=== PATIENT | male | born 1970 | race Caucasian/White ===

== ENCOUNTER 2018-04-25 06:38 | Inpatient (IN) | payer SELFPAY ==
[2018-04-25 07:02] VITALS: BMI 44.6
[2018-04-25] MEDS ORDERED: ONDANSETRON 4 MG/2 ML VIAL IV PRN (07:04)
[2018-04-25] MEDS ORDERED: HYDRALAZINE HCL 20 MG/ML VIAL IV PRN (07:04)
[2018-04-25] MEDS ORDERED: LORazepam 2 MG/ML VIAL IV PRN (07:04)
[2018-04-25 07:57] LABS: Absolute Lymphocytes (CBC) 0.6 K/uL (0.7-4.9); Absolute Monocytes 0.4 K/uL (0.1-1.3); Absolute Neutrophil 11.6 K/uL (1.8-8.0); Basophils % 0.2 % (0-1.3); Hematocrit 42.2 % (39.6-49.0); Lymphocytes % 4.7 % (15.3-44.8); MCH 31.5 pg (27.0-35.0); MCV 91.2 fL (80-100); MPV 7.9 fL (7.6-11.3); Monocytes % 3.2 % (3.3-12.3); RBC Red Blood Cell Count 4.62 M/uL (4.33-5.43)
[2018-04-25 08:01] LABS: Magnesium 2.1 mg/dL (1.8-2.4); Potassium 4.2 mmol/L (3.5-5.1)
[2018-04-25 08:11] LABS: Thyroid Stimulating Hormone 3.01 uIU/mL (0.36-3.74)
[2018-04-25] MEDS: ACETAMINOPHEN 500 MG TAB PO PRN ×2 (08:31→13:56)
[2018-04-25] MEDS: NA CHLORIDE 0.9% 1,000 ML IV SCH ×2 (08:31→17:10)
[2018-04-25] MEDS: NICOTINE 21 MG/PAT TD SCH (08:31)
[2018-04-25] MEDS: ENOXAPARIN 40 MG/0.4 ML SQ SCH (08:32)
[2018-04-25] MEDS: LISINOPRIL 10 MG TAB PO SCH (08:32)
[2018-04-25 09:04] LABS: Urine Appearance CLEAR; Urine Bilirubin NEGATIVE (NEG); Urine Blood 2+ (NEG); Urine Color YELLOW; Urine Glucose NEGATIVE (NEG); Urine Protein NEGATIVE (NEG); Urine Specific Gravity >=1.030 (1.005-1.030); Urine pH 6.5 (5.0-7.0)
[2018-04-25 09:18] LABS: Urine Microscopic Reflex ORDER UMIC
[2018-04-25 09:28] LABS: Urine Bacteria NONE SEEN /HPF (NONE SEEN); Urine Culture Reflex Order NOT NEEDED
--- NOTE | 2018-04-25 09:52 | RAD REPORT ---
EXAM DESCRIPTION: RAD - Chest Pa And Lat (2 Views) - 04/25/2018 9:09 am CLINICAL HISTORY: Leg edema, shortness of breath COMPARISON: None. TECHNIQUE: PA and lateral views of the chest were obtained. FINDINGS: The lungs are clear. No failure or volume overload findings. Heart size is normal and ly tral vasculature is within normal limits. No pleural effusion or pneumothorax seen. No acute bony f inding noted. No aortic abnormality. IMPRESSION: No acute cardiopulmonary process.
--- NOTE | 2018-04-25 09:52 | RAD REPORT ---
EXAM DESCRIPTION: US - EXTREM VENOUS W COMPRESS HALIE - 04/25/2018 9:29 am CLINICAL HISTORY: Cellulitis, leg pain and edema COMPARISON: None. TECHNIQUE: Real-time sonographic evaluation of the bilateral lower extremity common femoral, superfi cial femoral, popliteal and posterior tibial veins was performed. FINDINGS: Normal compressibility, flow augmentation, phasic flow and spontaneous flow are identified in the left and right lower extremity common femoral, superficial femoral, popliteal and posterior t ibeal veins. No intraluminal filling defects seen. Prominent right groin lymph node likely reactive from the cellulitis. IMPRESSION: No DVT in either lower extremity.
[2018-04-25] MEDS: PIPER/TAZO/NS 3.375gm 3.375 GM/100 ML BAG IVPB SCH ×2 (09:54→16:59)
[2018-04-25] MEDS: VANCOMYCIN 2 GM in NA CHLORIDE 0.9% 500 ML IVPB SCH (09:54)
[2018-04-25 10:14] LABS: Blood Morphology Comment NOT SEEN (NOT SEEN); Platelet Estimate ADEQ; Urine White Blood Cell Casts OK
--- NOTE | 2018-04-25 10:14 | P.HP ---
Certification for Inpatient Patient admitted to: Inpatient With expected LOS: >2 Midnights Patient will require the following post-hospital care: None Practitioner: I am a practitioner with admitting privileges, knowledge of patient current condition, hospital course, and medical plan of care. Services: Services provided to patient in accordance with Admission requirements found in Title 42 Section 412.3 of the Code of Federal Regulations Patient History Date of Service: 04/25/18 Primary Care Provider: Unknown Reason for admission: Right lower extremity pain and swelling History of Present Illness: 48-year-old male presented to outpatient [facility] for right lower extremity pain and swelling. Patient reported right lower extremity pain and swelling since Wednesday. [place] Thereafter he reported increasing swelling. He also reported some fever and chills today. Over the past week he has noted some swelling to the feet. Patient reports a history of hypertension, obesity and tobacco use. He drinks alcohol weekly. At the facility patient found to have right lower extremity cellulitis. White count elevated. Patient was directly admitted for further treatment. Lab here in the hospital shows a white count of 12.6, lactic acid within normal range. Pro calcitonin elevated. GFR 59. Glucose 119. Venous Doppler of the lower extremities bilateral shows no DVT. Chest x-ray unremarkable. When I saw the patient he did not appear in any respiratory distress. Edema to the right lower extremity noted. Blood pressure is not well controlled. Allergies No Known Allergies Allergy (Unverified 04/25/18 07:41) Home medications list reviewed: Yes Home Medications: Lisinopril 10 mg PO DAILY 04/25/18 - Past Medical/Surgical History Diabetic: No -: Hypertension -: Obesity -: Tobacco abuse -: Alcohol use Past Surgical History: Patient denies surgical history Psychosocial/ Personal History: Patient is . He works as a teacher and gymnastics coach or instructor. He has 3 children. - Family History Family History: Reviewed- Non-Contributory - Social History Smoking Status: Heavy Tobacco smoker (>10 cigarettes/day) Counseled patient to stop smoking for: less than 10 minutes Smoking therapy provided: Yes Patient receptive to therapy: Yes Alcohol use: Yes CD- Drugs: No Caffeine use: Yes Place of Residence: Home Review of Systems General: Fever, Chills, As per HPI Eyes: Unremarkable ENT: Unremarkable Respiratory: Unremarkable Cardiovascular: Edema, As per HPI Gastrointestinal: Unremarkable Genitourinary: Unremarkable Musculoskeletal: As per HPI Integumentary: As per HPI Neurological: Unremarkable Lymphatics: Unremarkable Physical Examination - Vital Signs Temperature: 98.4 F Blood Pressure: 170/98 Pulse: 112 Respirations: 96 Pulse Ox (%): 96 - Physical Exam General: Alert, In no apparent distress, Oriented x3, Cooperative HEENT: Atraumatic, Normocephalic, PERRLA, Mucous membr. moist/pink Neck: Supple, No Thyromegaly Respiratory: Clear to auscultation bilaterally, Normal air movement Cardiovascular: Normal pulses, Regular rate/rhythm Gastrointestinal: Normal bowel sounds, Soft and benign, Non-distended, No tenderness, No masses, No rebound, No guarding Musculoskeletal: Other (Warmth to the right lower extremity with edema noted. Edema to the lower extremity greater on the right than left. Some erythema noted. No open sores noted.) Integumentary: No erythema, No warmth, No cyanosis Neurological: Normal speech, Normal strength at 5/5 x4 extr, Normal tone, Normal affect Lymphatics: Other (Right groin adenopathy noted) - Studies Laboratory Data (last 24 hrs) 04/25/18 07:25: Sodium 137, Potassium 4.2, BUN 15, Creatinine 1.30, Glucose 119 H, Magnesium 2.1 04/25/18 07:25: WBC 12.6 H, Hgb 14.5, Hct 42.2, Plt Count 171 Assessment and Plan - Problems (Diagnosis) (1) Cellulitis Current Visit: Yes Status: Acute Plan: Patient started on IV antibiotic therapy. Blood cultures obtained. Will consult surgery to further assess. Venous Doppler shows no DVT. Chest x-ray unremarkable. I will turn the service over to Dr. Etienne tomorrow. I will go over the plan of care with him. Qualifiers: Site of cellulitis: extremity Site of cellulitis of extremity: lower extremity Laterality: right Qualified Code(s): L03.115 - Cellulitis of right lower limb (2) Hypertension Current Visit: Yes Status: Chronic Plan: Patient with hypertension. Not adequately controlled. Will continue with lisinopril. Will add metoprolol. Will check echocardiogram. Will evaluate for CHF. Qualifiers: Hypertension type: essential hypertension Qualified Code(s): I10 - Essential (primary) hypertension (3) Renal insufficiency Current Visit: Yes Status: Acute Plan: Will continue with IV fluid hydration. (4) Dehydration Current Visit: Yes Status: Acute Plan: Continue with IV fluids. (5) Tobacco use Current Visit: Yes Status: Chronic Plan: Will provide nicotine patch if required. Tobacco cessation recommended. (6) Alcohol use Current Visit: Yes Status: Chronic Plan: Alcohol cessation will be provided. (7) Obesity Current Visit: Yes Status: Chronic Plan: Will address lifestyle modification education Qualifiers: Obesity type: due to excess calories Obesity classification: adult class 3 (BMI >= 40) Serious obesity comorbidity presence: with serious comorbidity Body mass index: BMI 40.0-44.9 Qualified Code(s): E66.01 - Morbid (severe) obesity due to excess calories; Z68.41 - Body mass index (BMI) 40.0-44.9, adult Discharge Plan: Home Plan to discharge in: Greater than 2 days - Advance Directives Does patient have a Living Will: No Does patient have a Durable POA for Healthcare: No - Code Status/Comfort Care Code Status Assessed: Yes Time Spent Managing Pts Care (In Minutes): 55
[2018-04-25] MEDS: TRAMADOL HCL 50 MG TAB PO PRN (15:56)
[2018-04-25] MEDS: ACETAMINOPHEN 500 MG TAB PO ONE ×2 (15:57→16:00)
--- NOTE | 2018-04-25 16:37 | CON ---
Date of Consultation: 04/25/2018 Brief History Of Present Illness: The patient is a 48-year-old male, who presents to the [facility] ER at [place] with right lower extremity pain and swelling. He states that he was in the [place] recently walking through the water and thought that the seaweed was unusually high at that time, bu t did not notice any stinging or envenomations of any kind that he is aware of. He states that over the course of the day on Wednesday/Wednesday, he developed worse swelling to the right lower extremity be low the knee. It became more tender, painful. He slept that first night on Wednesday and had some im provement of his symptoms, but on Wednesday they got significantly worse after he was ambulatory. He st arted having pain in the lower extremity and his symptoms worsened and as such, he developed fever, n o chills and no other constitutional complaints, but the swelling and redness and tenderness got wors e and as such he came to [place] ER where he ultimately was seen, evaluated, and transferred to our [facility] for higher level of care. Past Medical History: Significant for hypertension. Past Surgical History: He has had EGD for a food impaction. Home Medications: Lisinopril 10 mg p.o. daily. Allergies: NO KNOWN DRUG ALLERGIES. Social History: He admits to tobacco use, predominantly chewing tobacco but does smoke on occasion a nd he drinks alcohol intermittently. He works as a teacher and a men's basketball coach. He has 3 children. He reyna es recreational drug use. Review of Systems: A 10-point review of systems other than HPI, denies. Physical Examination: Vital Signs: At the time of my examination, his BMI is 44.6. His vital signs were a blood pressure 170/98, pulse is 112, respiratory rate 12, temperature 98.4. General: He is awake, alert, oriented. Psychiatric: He is appropriate conversive. HEENT: He is normocephalic. His sclerae are anicteric. He has a small xanthoma on his left eyelid. His oropharynx is clear. Neck: Supple. No JVD. Chest: Normal expansion and excursion. Cardiovascular: Regular rate and rhythm. Pulmonary: Clear to auscultation bilaterally. Abdomen: Soft, nontender, nondistended. Obese generally. Extremities: Focused examination of the right lower extremity shows some cellulitic and swelling benji nges below the knee on the right lower extremity. It does not involve the joint at the ankle. It is isolated to above the ankle and below the knee by approximately 4 to 5 cm on each aspect of that. It is near circumferential. It is minimally tender to palpation and the swelling is 1+ pitting edema. There was no obvious bleeding. There was some minor small skin breaks and evidence of old scars hea led on the lower extremity. Otherwise, the remainder of examination is essentially normal. Laboratory Data: Reveals a white blood cell count of 12.6, hemoglobin is 14.5, hematocrit of 42.2, p latelet count is 171. Neutrophils were 91%. His sodium 137, potassium 4.2, chloride 104, carbon tiarra xide 26, BUN 15, creatinine 1.3, glucose is 119, lactic acid 1.0. His procalcitonin is 1.01. His UA showed 2+ blood and 10 to 20 red blood cells, otherwise essentially negative. He had imaging perfor med here which included an extremity venous study, which was officially read as no DVT in either lowe r extremity and he had a chest x-ray performed which is officially was read as no acute cardiopulmona ry process. Assessment And Plan: This is a 48-year-old male who presents with signs and symptoms of cellulitis t o the right lower extremity. 1.Continue medical management. 2.IV fluid hydration. 3.Antibiotic coverage with vancomycin and Zosyn. 4.Local wound care. Scrubbing the lower extremity with chlorhexidine daily and elevation, in additi on Lovenox injections daily. I have explained the risks, benefits, and alternatives of the above-stated plan. The patient agrees to proc eed as indicated. AMARIS/KIERRA Voice ID: [id number] Report ID: [id number]
[2018-04-25] MEDS: METOPROLOL TAR 25 MG TAB PO SCH (17:09)
[2018-04-26] MEDS: IBUPROFEN 400 MG TAB PO PRN ×2 (00:22→14:27)
[2018-04-26] MEDS: PIPER/TAZO/NS 3.375gm 3.375 GM/100 ML BAG IVPB SCH ×3 (00:22→16:27)
[2018-04-26] MEDS: NA CHLORIDE 0.9% 1,000 ML IV SCH ×4 (00:23→22:04)
[2018-04-26] MEDS: VANCOMYCIN 2 GM in NA CHLORIDE 0.9% 500 ML IVPB SCH ×2 (02:46→22:00)
[2018-04-26 05:26] LABS: Absolute Lymphocytes (CBC) 1.2 K/uL (0.7-4.9); Absolute Monocytes 0.7 K/uL (0.1-1.3); Absolute Neutrophil 7.6 K/uL (1.8-8.0); Basophils % 0.5 % (0-1.3); Eosinophils % 0.1 % (0-4.4); Lymphocytes % 12.9 % (15.3-44.8); MCH 31.9 pg (27.0-35.0); MCV 91.4 fL (80-100); MPV 8.1 fL (7.6-11.3); Monocytes % 7.2 % (3.3-12.3); RBC Red Blood Cell Count 4.37 M/uL (4.33-5.43)
[2018-04-26 05:31] LABS: Magnesium 2.1 mg/dL (1.8-2.4); Potassium 4.1 mmol/L (3.5-5.1)
[2018-04-26] MEDS: METOPROLOL TAR 25 MG TAB PO SCH ×2 (06:44→18:41)
[2018-04-26] MEDS: PANTOPRAZOLE 40MG TABLET PO SCH (06:44)
[2018-04-26] MEDS: NICOTINE 21 MG/PAT TD SCH (08:40)
[2018-04-26] MEDS: ENOXAPARIN 40 MG/0.4 ML SQ SCH (08:41)
[2018-04-26] MEDS: LISINOPRIL 10 MG TAB PO SCH (08:41)
--- NOTE | 2018-04-26 12:45 | ECHO ---
HEIGHT: 6 ft 0 in WEIGHT: 328 lb 12.8 oz DATE OF STUDY: 04/26/[address]: Gerardo Robertson DO 2-DIMENSIONAL: YES M.MODE: YES DOPPLER: YES COLOR FLOW: YES TDS: NO PORTABLE: NO DEFINITY: NO BUBBLE STUDY: NO DIAGNOSIS: EDEMA, HYPERTENSION, EVALUATE FOR CONGESTIVE HEART FAILURE CARDIAC HISTORY: CATHERIZATION: NO SURGERY: NO PROSTHETIC VALVE: NO PACEMAKER: NO MEASUREMENTS (cm) DIASTOLIC (NORMALS) SYSTOLIC (NORMALS) IVSd 1.4 (0.6-1.2) LA Diam 3.8 (1.9-4.0) LVEF 56% LVIDd 5.8 (3.5-5.7) LVIDs 4.1 (2.0-3.5) %FS 30% LVPWd 1.5 (0.6-1.2) Ao Diam 3.5 (2.0-3.7) 2 DIMENSIONAL ASSESSMENT: RIGHT ATRIUM: NORMAL LEFT ATRIUM: NORMAL RIGHT VENTRICLE: NORMAL LEFT VENTRICLE: NORMAL TRICUSPID VALVE: NORMAL MITRAL VALVE: NORMAL PULMONIC VALVE: NORMAL AORTIC VALVE: NORMAL PERICARDIAL EFFUSION: NONE AORTIC ROOT: NORMAL LEFT VENTRICULAR WALL MOTION: PARADOXICAL SEPTUM. DOPPLER/COLOR FLOW: MILD TRICUSPID REGURGITATION NORMAL RIGHT VENTRICULAR SYSTOLIC PRESSURE. COMMENTS: PARADOXICAL SEPTAL MOTION. MILD TRICUSPID REGURGITATION. NORMAL LEFT VENTRICULAR EJECTION FRACTION AND SIZE. NO EFFUSION. TECHNOLOGIST: DARLEEN LOCKHART
[2018-04-26] MEDS: HYDROCODONE/APAP 7.5/325 MG TAB PO PRN ×2 (16:27→23:20)
--- NOTE | 2018-04-26 18:10 | P.PN ---
Subjective Date of Service: 04/26/18 Primary Care Provider: Unknown Chief Complaint: Right lower extremity pain and swelling He feels better, however, his lesion seems to be extended out of the marked margins. No fever. Pain is better control. Physical Examination - Vital Signs Temperature: 101.4 F Blood Pressure: 134/82 Pulse: 99 Respirations: 18 Pulse Ox (%): 96 - Physical Exam General: Alert, In no apparent distress HEENT: Atraumatic, PERRLA, EOMI Cardiovascular: Regular rate/rhythm, Normal S1 S2 Gastrointestinal: Normal bowel sounds, No tenderness Musculoskeletal: No tenderness Integumentary: Skin lesion, Erythema (right leg, extended over the marked margins. There are some blisters developing as well.) Neurological: Normal speech, Normal tone, Normal affect Lymphatics: No axilla or inguinal lymphadenopathy - Studies Laboratory Data (last 24 hrs) 04/26/18 04:53: Sodium 136, Potassium 4.1, BUN 15, Creatinine 1.40 H, Glucose 99 , Magnesium 2.1 04/26/18 04:53: WBC 9.6 D, Hgb 13.9, Hct 40.0, Plt Count 150 L Assessment And Plan - Current Problems (Diagnosis) (1) Cellulitis Onset Date: 04/26/18 Current Visit: Yes Status: Acute Plan: Blood cultures are negative so far. Continue empiric treatment with Vancomycin and Zosyn. Lesion has extended today, however, he is afebrile and WBC are within normal limits. Qualifiers: Site of cellulitis: extremity Site of cellulitis of extremity: lower extremity Laterality: right Qualified Code(s): L03.115 - Cellulitis of right lower limb (2) Obesity Onset Date: 04/26/18 Current Visit: Yes Status: Chronic Qualifiers: Obesity type: due to excess calories Obesity classification: adult class 3 (BMI >= 40) Serious obesity comorbidity presence: with serious comorbidity Body mass index: BMI 40.0-44.9 Qualified Code(s): E66.01 - Morbid (severe) obesity due to excess calories; Z68.41 - Body mass index (BMI) 40.0-44.9, adult (3) Tobacco use Onset Date: 04/26/18 Current Visit: Yes Status: Chronic (4) Acute renal injury Current Visit: Yes Status: Acute Plan: Continue IV fluids. May be getting worse secondary to antibiotic, creatinine today slightly more elevated. Continue monitoring. - Code Status/Comfort Care Code Status Assessed: Yes Code Status: Full Code
[2018-04-27] MEDS: PIPER/TAZO/NS 3.375gm 3.375 GM/100 ML BAG IVPB SCH ×3 (01:45→17:25)
[2018-04-27 04:14] LABS: Absolute Lymphocytes (CBC) 1.5 K/uL (0.7-4.9); Absolute Monocytes 0.7 K/uL (0.1-1.3); Absolute Neutrophil 6.7 K/uL (1.8-8.0); Basophils % 0.4 % (0-1.3); Eosinophils % 1.2 % (0-4.4); Hematocrit 40.4 % (39.6-49.0); Lymphocytes % 16.8 % (15.3-44.8); MCH 31.7 pg (27.0-35.0); MCV 91.4 fL (80-100); MPV 8.8 fL (7.6-11.3); Monocytes % 7.6 % (3.3-12.3); RBC Red Blood Cell Count 4.42 M/uL (4.33-5.43)
[2018-04-27 04:34] LABS: Magnesium 2.1 mg/dL (1.8-2.4); Potassium 3.7 mmol/L (3.5-5.1)
[2018-04-27] MEDS: PANTOPRAZOLE 40MG TABLET PO SCH (06:01)
[2018-04-27] MEDS: METOPROLOL TAR 25 MG TAB PO SCH (06:01)
[2018-04-27] MEDS: NICOTINE 21 MG/PAT TD SCH (08:40)
[2018-04-27] MEDS: HYDROCODONE/APAP 7.5/325 MG TAB PO PRN (08:41)
[2018-04-27] MEDS: LISINOPRIL 10 MG TAB PO SCH (08:42)
[2018-04-27] MEDS: NA CHLORIDE 0.9% 1,000 ML IV SCH (10:00)
[2018-04-27] MEDS: ENOXAPARIN 40 MG/0.4 ML SQ SCH (10:22)
[2018-04-27] MEDS: VANCOMYCIN 2 GM in NA CHLORIDE 0.9% 500 ML IVPB SCH (15:13)
--- NOTE | 2018-04-27 15:59 | P.PN ---
Subjective Date of Service: 04/27/18 Primary Care Provider: Unknown Chief Complaint: Right lower extremity pain and swelling Patient seen and examined at bedside with RN. Chart reviewed. Case discussed with surgery. Currently patient is doing well overall no complaints to offer overnight. This morning he has been doing well swelling and erythema has been getting better. Review of Systems 10-point ROS is otherwise unremarkable Physical Examination - Vital Signs Temperature: 97.7 F Blood Pressure: 133/83 Pulse: 98 Respirations: 20 Pulse Ox (%): 95 - Physical Exam General: Alert, In no apparent distress HEENT: Atraumatic, PERRLA, EOMI Neck: Supple, JVD not distended Respiratory: Clear to auscultation bilaterally, Normal air movement Cardiovascular: Regular rate/rhythm, Normal S1 S2 Gastrointestinal: Normal bowel sounds, No tenderness Musculoskeletal: No tenderness Integumentary: Tenderness/swelling, Erythema, Warmth, Other (right leg cellulitis noted. Mild Improvement noted. Swelling still the same) Neurological: Normal speech, Normal tone, Normal affect Lymphatics: No axilla or inguinal lymphadenopathy - Studies Laboratory Data (last 24 hrs) 04/27/18 03:33: Sodium 137, Potassium 3.7, BUN 13, Creatinine 1.30, Glucose 100 , Magnesium 2.1 04/27/18 03:33: WBC 9.1, Hgb 14.0, Hct 40.4, Plt Count 164 Medications List Reviewed: Yes Assessment And Plan - Current Problems (Diagnosis) (1) Cellulitis Onset Date: 04/26/18 Current Visit: Yes Status: Acute Plan: Right lower leg cellulitis. -general surgery consulted. Recommendation appreciated at this time. -IV vanc and Zosyn. -pending cultures at this time. -leg wrap with Steffen bandages and elevation. Qualifiers: Site of cellulitis: extremity Site of cellulitis of extremity: lower extremity Laterality: right Qualified Code(s): L03.115 - Cellulitis of right lower limb (2) Renal insufficiency Onset Date: 04/26/18 Current Visit: Yes Status: Resolved (3) Alcohol use Onset Date: 04/26/18 Current Visit: Yes Status: Chronic (4) Hypertension Onset Date: 04/26/18 Current Visit: Yes Status: Chronic Qualifiers: Hypertension type: essential hypertension Qualified Code(s): I10 - Essential (primary) hypertension (5) Obesity Onset Date: 04/26/18 Current Visit: Yes Status: Chronic Qualifiers: Obesity type: due to excess calories Obesity classification: adult class 3 (BMI >= 40) Serious obesity comorbidity presence: with serious comorbidity Body mass index: BMI 40.0-44.9 Qualified Code(s): E66.01 - Morbid (severe) obesity due to excess calories; Z68.41 - Body mass index (BMI) 40.0-44.9, adult (6) Tobacco use Onset Date: 04/26/18 Current Visit: Yes Status: Chronic - Plan Currently awaiting clinical improvement at this time. For general surgery recommendation patient abuser for next 24 hr. Cultures currently pending however most likely strep or MSSA. Was switched to oral antibiotics within 24- 48 hr and anticipate discharge in 24-48 hr as well. Discharge Plan: Home Plan to discharge in: 48 Hours - Code Status/Comfort Care Code Status Assessed: Yes Critical Care: No
[2018-04-27] MEDS: TRAMADOL HCL 50 MG TAB PO PRN (20:12)
[2018-04-28] MEDS: PIPER/TAZO/NS 3.375gm 3.375 GM/100 ML BAG IVPB SCH ×3 (01:00→17:29)
[2018-04-28] MEDS: VANCOMYCIN 2 GM in NA CHLORIDE 0.9% 500 ML IVPB SCH ×2 (02:23→14:32)
[2018-04-28 04:31] LABS: Absolute Lymphocytes (CBC) 1.3 K/uL (0.7-4.9); Absolute Neutrophil 6.6 K/uL (1.8-8.0); Basophils % 0.4 % (0-1.3); Eosinophils % 1.1 % (0-4.4); Hematocrit 38.3 % (39.6-49.0); Lymphocytes % 14.4 % (15.3-44.8); MCH 31.9 pg (27.0-35.0); MCV 91.3 fL (80-100); MPV 8.5 fL (7.6-11.3); Monocytes % 10.7 % (3.3-12.3)
[2018-04-28 04:35] LABS: Magnesium 2.3 mg/dL (1.8-2.4); Potassium 3.4 mmol/L (3.5-5.1)
[2018-04-28] MEDS: PANTOPRAZOLE 40MG TABLET PO SCH ×2 (06:30→09:14)
[2018-04-28] MEDS: ENOXAPARIN 40 MG/0.4 ML SQ SCH (09:10)
[2018-04-28] MEDS: NICOTINE 21 MG/PAT TD SCH (09:11)
[2018-04-28] MEDS: LISINOPRIL 10 MG TAB PO SCH (09:11)
--- NOTE | 2018-04-28 09:39 | P.PN ---
Subjective Date of Service: 04/28/18 Primary Care Provider: Unknown Chief Complaint: Right lower extremity pain and swelling Subjective: Improving (continues to have redness, but improving, swelling improving as well, but remains significant) Physical Examination - Vital Signs Temperature: 99.4 F Blood Pressure: 154/84 Pulse: 93 Respirations: 18 Pulse Ox (%): 95 - Physical Exam General: Alert, In no apparent distress, Cooperative Integumentary: Other (continues to have cellulitis to RLE, but redness receeding from markings, less edema, but still 2+) - Studies Laboratory Data (last 24 hrs) 04/28/18 03:36: Sodium 138, Potassium 3.4 L, BUN 10, Creatinine 1.20, Glucose 99 , Magnesium 2.3 04/28/18 03:36: WBC 9.0, Hgb 13.4 L, Hct 38.3 L, Plt Count 172 Medications List Reviewed: Yes Assessment And Plan - Current Problems (Diagnosis) (1) Cellulitis Onset Date: 04/26/18 Current Visit: Yes Status: Acute Plan: - continue vancomycin, zosyn - elevate RLE, wraps, cleaning with hibiclens - serial exams Qualifiers: Site of cellulitis: extremity Site of cellulitis of extremity: lower extremity Laterality: right Qualified Code(s): L03.115 - Cellulitis of right lower limb
--- NOTE | 2018-04-28 14:01 | P.PN ---
Subjective Date of Service: 04/28/18 Primary Care Provider: Unknown Chief Complaint: Right lower extremity pain and swelling Patient seen and examined at bedside with RN. Chart reviewed. Case discussed with surgery. Currently patient is doing well overall no complaints to offer overnight. This morning he has been doing well swelling and erythema has been getting better. Review of Systems 10-point ROS is otherwise unremarkable Physical Examination - Vital Signs Temperature: 99.6 F Blood Pressure: 157/85 Pulse: 96 Respirations: 18 Pulse Ox (%): 95 - Physical Exam General: Alert, In no apparent distress HEENT: Atraumatic, PERRLA, EOMI Neck: Supple, JVD not distended Respiratory: Clear to auscultation bilaterally, Normal air movement Cardiovascular: Regular rate/rhythm, Normal S1 S2 Gastrointestinal: Normal bowel sounds, No tenderness Musculoskeletal: No tenderness Integumentary: Tenderness/swelling, Erythema, Warmth Neurological: Normal speech, Normal tone, Normal affect Lymphatics: No axilla or inguinal lymphadenopathy - Studies Laboratory Data (last 24 hrs) 04/28/18 03:36: Sodium 138, Potassium 3.4 L, BUN 10, Creatinine 1.20, Glucose 99 , Magnesium 2.3 04/28/18 03:36: WBC 9.0, Hgb 13.4 L, Hct 38.3 L, Plt Count 172 Medications List Reviewed: Yes Assessment And Plan - Current Problems (Diagnosis) (1) Cellulitis Onset Date: 04/26/18 Current Visit: Yes Status: Acute Plan: Right lower leg cellulitis. -general surgery consulted. Recommendation appreciated at this time. -IV vanc and Zosyn. -pending cultures at this time. -leg wrap with Steffen bandages and elevation. -PICC line placement for 10 days of IV abx Qualifiers: Site of cellulitis: extremity Site of cellulitis of extremity: lower extremity Laterality: right Qualified Code(s): L03.115 - Cellulitis of right lower limb (2) Renal insufficiency Onset Date: 04/26/18 Current Visit: Yes Status: Resolved (3) Alcohol use Onset Date: 04/26/18 Current Visit: Yes Status: Chronic (4) Hypertension Onset Date: 04/26/18 Current Visit: Yes Status: Chronic Qualifiers: Hypertension type: essential hypertension Qualified Code(s): I10 - Essential (primary) hypertension (5) Obesity Onset Date: 04/26/18 Current Visit: Yes Status: Chronic Qualifiers: Obesity type: due to excess calories Obesity classification: adult class 3 (BMI >= 40) Serious obesity comorbidity presence: with serious comorbidity Body mass index: BMI 40.0-44.9 Qualified Code(s): E66.01 - Morbid (severe) obesity due to excess calories; Z68.41 - Body mass index (BMI) 40.0-44.9, adult (6) Tobacco use Onset Date: 04/26/18 Current Visit: Yes Status: Chronic - Plan Currently awaiting clinical improvement at this time. For general surgery recommendation patient to be observed for next 24 hr. Cultures currently pending. Possible PICC line for IV abx for home Discharge Plan: Home Plan to discharge in: 24 Hours - Code Status/Comfort Care Code Status Assessed: Yes Critical Care: No
[2018-04-28] MEDS: TRAMADOL HCL 50 MG TAB PO PRN (21:22)
[2018-04-29] MEDS: PIPER/TAZO/NS 3.375gm 3.375 GM/100 ML BAG IVPB SCH ×2 (00:44→10:34)
[2018-04-29] MEDS: VANCOMYCIN 2 GM in NA CHLORIDE 0.9% 500 ML IVPB SCH (03:54)
[2018-04-29] MEDS: PANTOPRAZOLE 40MG TABLET PO SCH (05:55)
[2018-04-29 05:58] VITALS: O2SAT 93
--- NOTE | 2018-04-29 09:03 | RAD REPORT ---
EXAM DESCRIPTION: RAD - Chest Single View - 04/29/2018 3:58 am CLINICAL HISTORY: PICC Placement COMPARISON: Chest Pa And Lat (2 Views) dated 04/25/2018 FINDINGS: Portable chest was obtained following placement of a left upper extremity PICC line. The c atheter tip projects over the SVC..
[2018-04-29] MEDS: LISINOPRIL 10 MG TAB PO SCH (10:56)
[2018-04-29] MEDS: ENOXAPARIN 40 MG/0.4 ML SQ SCH (10:56)
[2018-04-29] MEDS: NICOTINE 21 MG/PAT TD SCH (10:57)
[2018-04-29] MEDS ORDERED: VANCOMYCIN 2.25 GM in NA CHLORIDE 0.9% 500 ML IVPB SCH (15:00)
--- NOTE | 2018-04-29 15:13 | P.DS ---
Admission Date: 04/25/18 Discharge Date: 04/29/18 Primary Care Provider: Unknown Disposition: ROUTINE DISCHARGE Discharge Condition: GOOD Reason for Admission: Right lower extremity pain and swelling Consultations: General Surgery - Problems (1) Cellulitis Onset Date: 04/26/18 Current Visit: Yes Status: Acute Qualifiers: Site of cellulitis: extremity Site of cellulitis of extremity: lower extremity Laterality: right Qualified Code(s): L03.115 - Cellulitis of right lower limb (2) Renal insufficiency Onset Date: 04/26/18 Current Visit: Yes Status: Resolved (3) Alcohol use Onset Date: 04/26/18 Current Visit: Yes Status: Chronic (4) Hypertension Onset Date: 04/26/18 Current Visit: Yes Status: Chronic Qualifiers: Hypertension type: essential hypertension Qualified Code(s): I10 - Essential (primary) hypertension (5) Obesity Onset Date: 04/26/18 Current Visit: Yes Status: Chronic Qualifiers: Obesity type: due to excess calories Obesity classification: adult class 3 (BMI >= 40) Serious obesity comorbidity presence: with serious comorbidity Body mass index: BMI 40.0-44.9 Qualified Code(s): E66.01 - Morbid (severe) obesity due to excess calories; Z68.41 - Body mass index (BMI) 40.0-44.9, adult (6) Tobacco use Onset Date: 04/26/18 Current Visit: Yes Status: Chronic Brief History of Present Illness: 48-year-old male presented to outpatient [facility] for right lower extremity pain and swelling. Patient reported right lower extremity pain and swelling since Wednesday. [place] Thereafter he reported increasing swelling. He also reported some fever and chills today. Over the past week he has noted some swelling to the feet. Patient reports a history of hypertension, obesity and tobacco use. He drinks alcohol weekly. At the facility patient found to have right lower extremity cellulitis. White count elevated. Patient was directly admitted for further treatment. Lab here in the hospital shows a white count of 12.6, lactic acid within normal range. Pro calcitonin elevated. GFR 59. Glucose 119. Venous Doppler of the lower extremities bilateral shows no DVT. Chest x-ray unremarkable. When I saw the patient he did not appear in any respiratory distress. Edema to the right lower extremity noted. Blood pressure is not well controlled. Hospital Course: Overall during the hospital stay patient remained stable The patient was initially admitted to the hospital for right lower leg cellulitis. Patient had general surgery consulted on the case. For possible OR procedure. However after surgery saw the patient, it was decided that patient to get a medical management. Patient improved markedly on IV antibiotics and thus was setup for outpt IV antibiotics for 10 days per Surgery Reccs. Once once IV antibiotics was set up. Patient was then discharged home under stable conditions. Patient was discharged on IV vancomycin for total of 10 days was asked to follow up with Dr. veliz for his lab work. Patient was also asked to follow up with general surgery followup with the right leg cellulitis. Vital Signs/Physical Exam: Temp Pulse Resp BP Pulse Ox 99.6 F 92 H 20 157/80 H 98 04/29/18 12:00 04/29/18 12:00 04/29/18 12:00 04/29/18 12:00 04/29/18 12:00 General: Alert, In no apparent distress HEENT: Atraumatic, PERRLA, EOMI Neck: Supple, JVD not distended Respiratory: Clear to auscultation bilaterally, Normal air movement Cardiovascular: Regular rate/rhythm, Normal S1 S2 Gastrointestinal: Normal bowel sounds, No tenderness Musculoskeletal: No tenderness Integumentary: No rashes Neurological: Normal speech, Normal tone, Normal affect Lymphatics: No axilla or inguinal lymphadenopathy Laboratory Data at Discharge: WBC 9.0 K/uL (4.3-10.9) 04/28/18 03:36 Hgb 13.4 g/dL (13.6-17.9) L 04/28/18 03:36 Hct 38.3 % (39.6-49.0) L 04/28/18 03:36 Plt Count 172 K/uL (152-406) 04/28/18 03:36 Sodium 138 mmol/L (136-145) 04/28/18 03:36 Potassium 3.4 mmol/L (3.5-5.1) L 04/28/18 03:36 BUN 10 mg/dL (7-18) 04/28/18 03:36 Creatinine 1.20 mg/dL (0.55-1.3) 04/28/18 03:36 Glucose 99 mg/dL (74-106) 04/28/18 03:36 Magnesium 2.3 mg/dL (1.8-2.4) 04/28/18 03:36 Home Medications: Lisinopril 10 mg PO DAILY 04/25/18 Vancomycin/0.9 % Sod Chloride [Vanco 1.5 gm/250 ml-0.9% NaCl] 1.5 gm IV DAILY # 10 plast..bag 04/29/18 New Medications: Vancomycin/0.9 % Sod Chloride [Vanco 1.5 gm/250 ml-0.9% NaCl] 1.5 gm IV DAILY # 10 plast..bag Patient Discharge Instructions: please f.u with Dr Veliz for your labs. You will be coming to the ER to get your Antibiotics for total of 10 days Diet: Regular Activity: Ad roselyn Followup: Minor Veliz MD [ACTIVE - CAN ADMIT] - 1 Week Curry Dee MD [ACTIVE - CAN ADMIT] - 1 Week
--- NOTE | 2018-04-29 16:44 | P.CNS ---
Date of Consult: 04/29/18 Patient is a pleasant 48 year old gentleman with no previous history. He came to the hospital with cellulitis on 04/25. Was admitted to the hospitalist service. He is being treated with 10 days of IV antibiotics. I have been consulted to be the patient's out patient antibiotic doctor. Have discussed his care with the patient and given him a card to the office. Asked the patient to set up an appointment. Will see about his taking care of his primary care needs at that time
[2018-04-29 16:52] VITALS: BP 152/89; TEMP 98.8
--- NOTE | 2018-05-05 13:06 | P.CNS ---
Date of Consult: 05/05/18 Called by same day surgery. The patient developed a rash on his body. Was febrile. He woke up this morning with fevers and the rash. Held todays vancomycin. Started him on bactrim and doxy. Will have him return to same day surgery tomorrow. If no fevers or chills and the rash is improving we can d/c the picc line and culture it. It would be safer to admit the patient. However he has no insurance. Will have him monitor his temperature. Regular tylenol 650mg po tid. As well as the above mentioned antibiotics. If there is a worsening of his condition he should come to the ER. Patient is intellegent. Understands these instructions and agreed.
== END 2018-04-29 17:48 | disposition home or self-care (01) | DRG 603 ==
LOC: OBSVTOIN 06:41 → 4TH 06:41
PROVIDERS: ADMIT Internal Medicine; ATTEND Family Medicine
PROC: 02HV33Z Insertion of Infusion Device into Superior Vena Cava, Percutaneous Approach (ICD-10-PCS; principal; 2018-04-29)
DX: L03.115 Cellulitis of right lower limb (principal); Z68.41 Body mass index [BMI] 40.0-44.9, adult; N17.9 Acute kidney failure, unspecified; I10 Essential (primary) hypertension; E66.01 Morbid (severe) obesity due to excess calories; F17.220 Nicotine dependence, chewing tobacco, uncomplicated; F17.210 Nicotine dependence, cigarettes, uncomplicated; E86.0 Dehydration
CPT/HCPCS: 36415; 71045; 71046; 80048; 80202; 81003; 81015; 83605; 83735; 84145; 84439; 84443; 85025; 87040; 93306; 93970; J1650; J2543; J7030